=== PATIENT | male | born 1960 | race Asian ===

== ENCOUNTER 2017-05-04 16:27 | Inpatient (IN) | payer OTHER ==
[2017-05-04 16:36] VITALS: BMI 24.9
[2017-05-04] MEDS ORDERED: ACETAMINOPHEN 325 MG TABLET (FP) PO ONE (16:40)
--- NOTE | 2017-05-04 16:54 | PDOC ---
History of Present Illness - General Chief Complaint: SIRS, Suspected/Possible Stated Complaint: FEVER, FATIGUE Time Seen by Provider: 05/04/17 16:53 History Source: Patient Exam Limitations: No Limitations - History of Present Illness Initial Comments: 05/04/17 16:54 CHIEF COMPLAINT: Weakness HISTORY OF PRESENT ILLNESS: This is a 56 year old male with a history of BPH and HLD who presents complaining of fevers, chills, diaphoresis, and generalized weakness since last night. He complains of dry mouth, but otherwise denies all focal symptoms including headache, throat pain, chest pain, shortness of breath, cough, abdominal pain, n/v/d, dysuria, and rashes. He denies recent travel and sick contacts. PCP is Dr. Tatum. REVIEW OF SYSTEMS: GENERAL/CONSTITUTIONAL: Fevers/chills/diaphoresis. HEAD, EYES, EARS, NOSE AND THROAT: No change in vision. No ear pain or discharge. No sore throat. CARDIOVASCULAR: No chest pain or palpitations. RESPIRATORY: No cough, wheezing, or shortness of breath. GASTROINTESTINAL: No nausea, vomiting, diarrhea or constipation. GENITOURINARY: Dark urine. No dysuria, frequency, or change in urination. MUSCULOSKELETAL: No joint or muscle swelling or pain. No neck or back pain. SKIN: No rash or easy bruising. NEUROLOGIC: No headache, vertigo, loss of consciousness, or loss of sensation. PSYCHIATRIC: No depression or anxiety. ENDOCRINE: No increased thirst. No abnormal weight change. HEMATOLOGIC/LYMPHATIC: No anemia, easy bleeding, or history of blood clots. ALLERGIC/IMMUNOLOGIC: No hives or skin allergy. No latex allergy. PHYSICAL EXAM: GENERAL: The patient is awake, alert, and fully oriented. Very diaphoretic. HEAD: Normal with no signs of trauma. ENT: Pupils equal, round and reactive to light, extraocular movements intact, sclera anicteric, conjunctiva clear. Neck supple. LUNGS: Clear to auscultation bilaterally. Normal excursion. No respiratory distress or use of accessory muscles. CV: RRR, S1/S2, no MRG. Cap refill < 2 sec. ABDOMEN: Soft, non-distended, non-tender. EXTREMITIES: Normal range of motion, no edema. NEUROLOGICAL: Normal speech, normal gait. CN II-XII grossly intact. PSYCH: Normal mood, normal affect. SKIN: Warm, dry, normal turgor, no rashes or lesions noted. Past History - Past Medical History Allergies/Adverse Reactions: Allergies Allergy/AdvReac Type Severity Reaction Status Date / Time No Known Allergies Allergy Verified 05/04/17 16:31 Home Medications: Ambulatory Orders Tamsulosin HCl 1 each PO DAILY 11/20/14 Simvastatin 40 mg PO HS 05/04/17 Anemia: No Asthma: No Cancer: No Cardiac Disorders: No CVA: No COPD: No CHF: No Dementia: No Diabetes: No GI Disorders: No Disorders: Yes (BPH) HTN: No Hypercholesterolemia: Yes Liver Disease: No Suicide Attempt (Hx): No Seizures: No Thyroid Disease: No - Surgical History Abdominal Surgery: Yes (LT INGUINAL HERNIA REPAIR 25 YRS AGO) - Psycho/Social/Smoking Cessation Hx Anxiety: No Suicidal Ideation: No Smoking History: Never smoked Have you smoked in the past 12 months: Yes Number of Cigarettes Smoked Daily: 2 Information on smoking cessation initiated: No 'Breaking Loose' booklet given: 11/21/14 Hx Alcohol Use: No Drug/Substance Use Hx: No Substance Use Type: None Hx Substance Use Treatment: No *Physical Exam - Vital Signs Last Vital Signs Temp Pulse Resp BP Pulse Ox 101.8 F H 108 H 18 132/99 96 05/04/17 16:32 05/04/17 16:32 05/04/17 16:32 05/04/17 16:32 05/04/17 16:32 ED Treatment Course - LABORATORY CBC & Chemistry Diagram: 05/05/17 06:40 05/05/17 06:40 - Medications Given in the ED: ED Medications Discontinued Medications Generic Name Dose Route Start Last Admin Trade Name Neoq PRN Reason Stop Dose Admin Acetaminophen 975 mg 05/04/17 16:40 05/04/17 16:40 Tylenol - PO 05/04/17 16:41 975 mg NOW ONE Administration Medical Decision Making - Medical Decision Making 05/04/17 17:57 A/P: 56 year old male with fever. 1. EKG 2. CXR 3. Sepsis labs and fink-culture 4. Influenza swab 5. Tylenol 975mg po for fever 6. IVF 7. Reassess 05/04/17 18:33 WBC within normal limits at 7.0. Flu negative. UA 3+ blood, no WBCs. INR mildly prolonged at 1.3. 05/04/17 19:00 CXR wet read: RML infiltrate. Will place in observation given ill appearance. Accepted by Dr. Lee. *DC/Admit/Observation/Transfer Diagnosis at time of Disposition: Community acquired bacterial pneumonia Fever Qualifiers: Encounter type: initial encounter - Discharge Dispostion Admit: Yes
[2017-05-04] MEDS ORDERED: SODIUM CHLORIDE 1,000 ML IV STA (16:55)
[2017-05-04 17:37] LABS: BASOPHIL 0.7 % (0-2.0); EOSINOPHIL 0.4 % (0-4.5); MCH 29.8 pg (25.7-33.7); MEAN CELL VOLUME 87.6 fl (80-96); MEAN PLT VOLUME 7.9 fl (7.5-11.1); NEUTROPHILS 81.1 % (42.8-82.8); PLATELET COUNT 164 K/MM3 (134-434); RDW 13.3 % (11.9-15.9); URINE APPEARANCE CLEAR; URINE BILIRUBIN NEGATIVE (NEGATIVE); URINE BLOOD 3+ (NEGATIVE); URINE COLOR LT. YELLOW; URINE GLUCOSE (UA) NEGATIVE (NEGATIVE); URINE KETONE NEGATIVE (NEGATIVE); URINE LEUK ESTERASE NEGATIVE (NEGATIVE); URINE NITRITE NEGATIVE (NEGATIVE); URINE PROTEIN NEGATIVE (NEGATIVE)
[2017-05-04 18:02] LABS: INR 1.3 (0.82-1.09); PROTHROMBIN TIME (PATIENT) 14.4 SEC (9.98-11.88)
[2017-05-04 18:04] LABS: ACTIVATED PTT 35.9 SECONDS (26.9-34.4)
[2017-05-04 18:13] LABS: ALBUMIN 4.1 g/dl (3.4-5.0); ANION GAP 7 (8-16); CALCIUM 8.6 mg/dL (8.5-10.1); CO2 27 mmol/L (21-32); CREATININE 1.1 mg/dL (0.7-1.3); GLUCOSE,RANDOM 113 mg/dL (74-106); SGOT/AST 29 U/L (15-37); SGPT/ALT 27 U/L (12-78)
[2017-05-04 18:16] LABS: ALK PHOS 61 U/L (45-117); BILIRUBIN,TOTAL 0.7 mg/dL (0.2-1.0); CPK 166 IU/L (39-308); TOT PROT 7.6 g/dl (6.4-8.2); TROPONIN I < 0.02 ng/ml (0.00-0.05)
[2017-05-04] MEDS: SODIUM CHLORIDE 1,000 ML IV SCH ×2 (18:20→23:54)
[2017-05-04 18:22] LABS: URINE BACTERIA RARE /hpf (NONE SEEN); URINE MUCUS RARE; URINE RBC 9 /hpf (0-3); URINE WBC 1 /hpf (3-5)
[2017-05-04] MEDS ORDERED: LEVOFLOXACIN 750 MG IVPB 150 ML IVPB ONE ×2 (18:57→19:19)
--- NOTE | 2017-05-04 20:21 | HP ---
Admitting History and Physical - Admission History of Present Illness: 56yo M with history of HLD and BPH presents to the ED with 4 days of lightheadedness, dry mouth, and diaphoresis. Pt states that he came in today because his lightheadedness was worsening and was exacerbated by standing. He denies any CP, SOB, constitutional symptoms, cough (both productive and nonproductive), sick contacts, and any recent hospitalizations or interventions. Pt denies smoking, alcohol, illicit drugs CURB-65 of 0 SIRS 2/4 with fever and tachycardia History Source: Patient Limitations to Obtaining History: No Limitations - Past Medical History Cardiovascular: Yes: Hyperlipdemia Renal/: Yes: BPH - Smoking History Smoking history: Never smoked Have you smoked in the past 12 months: No - Alcohol/Substance Use Hx Alcohol Use: No - Social History Usual Living Arrangement: Yes: With Spouse History of Recent Travel: No Home Medications - Allergies Allergies/Adverse Reactions: Allergies Allergy/AdvReac Type Severity Reaction Status Date / Time No Known Allergies Allergy Verified 05/04/17 16:31 - Home Medications Home Medications: Ambulatory Orders Tamsulosin HCl 1 each PO DAILY 11/20/14 Simvastatin 40 mg PO HS 05/04/17 Physical Examination Vital Signs: Vital Signs Temperature 101.8 F H 05/04/17 16:32 Pulse Rate 108 H 05/04/17 16:32 Respiratory Rate 18 05/04/17 16:32 Blood Pressure 132/99 05/04/17 16:32 O2 Sat by Pulse Oximetry (%) 96 05/04/17 16:32 Constitutional: Yes: Well Nourished, No Distress, Calm, Diaphoresis Eyes: Yes: Conjunctiva Clear, EOM Intact, PERRL HENT: Yes: Other (Moist mucosa) Cardiovascular: Yes: Tachycardia, S1, S2. No: Murmur Respiratory: Yes: Regular, Other (R middle lobe rhonchi appreciated on auscultation; good aeration, no wheezing noted). No: SOB Gastrointestinal: Yes: Normal Bowel Sounds, Soft. No: Hepatomegaly, Splenomegaly, Tenderness, Tenderness, Rebound Extremities: Yes: WNL Edema: No Peripheral Pulses WNL: Yes Neurological: Yes: Alert, Oriented Psychiatric: Yes: Alert, Oriented Imaging - Results Chest X-ray: Image Reviewed Assessment/Plan 56yo M with minor medical conditions found to have R middle lobe infiltrates on CXR after experiencing diaphoresis related to fevers, lightheadedness, and dry mouth for 4 days. 1) Sepsis secondary to community acquired pneumonia --SIRS 2/4 --CURB-65 of 0 --WBC 11.7, Fever of 101.4 --Currently getting first dose of Levaquin in the ED --Will continue with Day 2 Rocephin/Azithromycin --Urine legionella Antigen ordered --Tylenol PRN for fever --Blood Cx x2 and Urine cultures pending; will f/u 2) Elevated INR --No abdominal tenderness --No past medical history of liver dz --No alcohol consumption --Will follow 3) Past stable medical history --Continued home regiment of statin and tamsulosin FEN: Fluids: Received fluids in ER; will continue gentle hydration; PO tolerant Electrolyte abnormalities: None currently Nutrition: Regular Diet PPX: DVt -- Heparin 5000U SQ Visit type - Emergency Visit Emergency Visit: Yes ED Registration Date: 05/04/17 Care time: The patient presented to the Emergency Department on the above date and was hospitalized for further evaluation of their emergent condition. - New Patient This patient is new to me today: Yes Date on this admission: 05/05/17 - Critical Care Critical Care patient: No
[2017-05-04] MEDS ORDERED: PATIENT'S OWN MEDICATION (NON-FORMULARY) (Simvastatin [Simvastatin] 40 MG) PO SCH (22:00)
--- NOTE | 2017-05-04 22:28 | PN ---
Teaching Attending Note Name of Resident: Anthony Lopez ATTENDING PHYSICIAN STATEMENT I saw and evaluated the patient. I reviewed the resident's note and discussed the case with the resident. I agree with the resident's findings and plan as documented. SUBJECTIVE: 56 yo gentleman admitted to general medical floor for Sepsis secondary to Community Acquired Pneumonia complicated by mild hyponatremia and patient fear of being discharged home. OBJECTIVE: - Vital Signs Temp: 101.8F BP: 132/99 HR: 108 RR: 18 spO2: 96% on RA - Physical Examination General: Alert, anxious, profusely diaphoretic gentleman in mild distress HEENT: Diaphoretic, EOMI, No oropharyngeal lesions noted Neck: No JVD or thyromegaly CV: Sinus Tachycardia, S1 and S2 Pulm: Rhonchi appreciated R>L ; No wheezing or crackles appreciated Abd: Soft, NTTP, ND, BS+ Ext: Symmetrically appearing Lymph: No cervical or axillary lymphadenopathy - Imaging CXR reviewed ( RML infiltrate c/w Pneumonia ) - Labs BUN/Cr: 14/1.1 K+: 4.0 ; Na+: 135 H/H: 14.7/43.3 w/ no leukocytosis aPTT/INR: 35.9/1.30 Troponin unremarkable ASSESSMENT: Sepsis Community Acquired Pneumonia ( Bacterial presumed ; r/o Legionella) Mild Hyponatremia Mild elevation INR h/o DLD - Stable h/o BPH - Stable PLAN: Admit for observation and resolution of sepsis syndrome Confirm and resume outpatient medication regimen Start IV rocephin and azithromycin pending blood, sputum cultures and urine legionella IVF hydration with NS for 1-2 liters overnight Supplemental O2 to maintain spO2 >96% ; Duonebs q4h prn ; Incentive Spirometry q2h while awake as tolerated Ambulation as tolerated Trend electrolytes and renal function, coag panel, and CBC in AM DISPOSITION: Anticipate discharge home on PO antibiotic regimen in 24-48h assuming no clinical events from admission. Update vaccinations
[2017-05-04] MEDS: ATORVASTATIN CA 20 MG TABLET (FP) PO SCH (23:55)
[2017-05-04] MEDS: HEPARIN NA (PORCINE) 5,000 UNITS/ML 1ML VIAL SQ SCH ×2 (23:55)
[2017-05-05] MEDS: HEPARIN NA (PORCINE) 5,000 UNITS/ML 1ML VIAL SQ SCH ×3 (06:12→21:48)
[2017-05-05] MEDS: ACETAMINOPHEN 325 MG TABLET (FP) PO PRN ×2 (06:29→21:42)
--- NOTE | 2017-05-05 08:14 | PN ---
Teaching Attending Note Name of Resident: Rosina Kirkland ATTENDING PHYSICIAN STATEMENT I saw and evaluated the patient. I reviewed the resident's note and discussed the case with the resident. I agree with the resident's findings and plan as documented. SUBJECTIVE: No specific complaints OBJECTIVE: Vitals noted ASSESSMENT AND PLAN: Clinically improved Sepsis resolved Appreciate web development consultant input Anticipate discharge tomorrow if he remains afebrile See resident note for full details
[2017-05-05 08:25] LABS: BASOPHIL 0.4 % (0-2.0); EOSINOPHIL 1.7 % (0-4.5); MCH 29.3 pg (25.7-33.7); MCHC 33.5 g/dl (32.0-35.9); MEAN CELL VOLUME 87.4 fl (80-96); MEAN PLT VOLUME 8.7 fl (7.5-11.1); NEUTROPHILS 65.3 % (42.8-82.8); PLATELET COUNT 116 K/MM3 (134-434); RDW 13.4 % (11.9-15.9); WHITE BLOOD COUNT 4.7 K/mm3 (4.0-10.0)
[2017-05-05 08:32] LABS: ALBUMIN 3.1 g/dl (3.4-5.0); ANION GAP 6 (8-16); CALCIUM 7.8 mg/dL (8.5-10.1); CO2 26 mmol/L (21-32); GLUCOSE,RANDOM 108 mg/dL (74-106)
[2017-05-05 08:36] LABS: ALK PHOS 58 U/L (45-117); BILIRUBIN,TOTAL 0.4 mg/dL (0.2-1.0); CREATININE 0.9 mg/dL (0.7-1.3); SGOT/AST 30 U/L (15-37); SGPT/ALT 30 U/L (12-78); TOT PROT 6.1 g/dl (6.4-8.2)
[2017-05-05] MEDS: TAMSULOSIN HCL 0.4 MG CAP.ER.24H (FP) PO SCH (09:55)
--- NOTE | 2017-05-05 10:23 | EKG ---
Test Reason : Blood Pressure : / mmHG Vent. Rate : 075 BPM Atrial Rate : 075 BPM P-R Int : 204 ms QRS Dur : 094 ms QT Int : 374 ms P-R-T Axes : 047 019 049 degrees QTc Int : 417 ms NORMAL SINUS RHYTHM POSSIBLE LEFT ATRIAL ENLARGEMENT INCOMPLETE RBBB WHEN COMPARED WITH ECG OF 14-NOV-2014 13:20, NO SIGNIFICANT CHANGE WAS FOUND Confirmed by JAMMIE DIGGS MD ([id number]) on 05/05/2017 10:23:31 AM Referred By: Confirmed By:JAMMIE DIGGS MD
--- NOTE | 2017-05-05 10:36 | PN ---
Progress Note (short form) - Note Progress Note: ID consult dictated CAP RML continue rocephin/zithromax urinary antigens labs in am f/u cultures will need f/u chest xray as outpt to document resolution of infiltrate Problem List - Problems (1) Community acquired bacterial pneumonia Code(s): J15.9 - UNSPECIFIED BACTERIAL PNEUMONIA
[2017-05-05] MEDS: DEXTROSE 5%-0.45% SALINE 1,000 ML IV SCH (13:10)
--- NOTE | 2017-05-05 16:56 | PN ---
Physical Exam: SUBJECTIVE: Patient seen and examined at bedside. States that he is feeling slightly better, but still feels weak and has decreased appetite. OBJECTIVE: Vital Signs Period Temp Pulse Resp BP Sys/Isbell Pulse Ox Last 24 Hr 98.6 F-100.4 F 68-88 18-20 113-129/70-74 99 GENERAL: The patient is awake, alert, and fully oriented, in no acute distress. HEAD: Normal with no signs of trauma. EYES: PERRL, extraocular movements intact, sclera anicteric, conjunctiva clear. No ptosis. ENT: Ears normal, nares patent, oropharynx clear without exudates, moist mucous membranes. NECK: Trachea midline, full range of motion, supple. LUNGS: crackles appreciated R anterior chest HEART: Regular rate and rhythm, S1, S2 without murmur, rub or gallop. ABDOMEN: Soft, nontender, nondistended, normoactive bowel sounds, no guarding, no rebound, no hepatosplenomegaly, no masses. EXTREMITIES: 2+ posterior tibial pulses, warm, well-perfused, no edema. NEUROLOGICAL: Cranial nerves II through XII grossly intact. Laboratory Results - last 24 hr 05/05/17 05/05/17 06:40 06:40 WBC 4.7 D RBC 4.39 Hgb 12.8 D Hct 38.3 MCV 87.4 MCH 29.3 MCHC 33.5 RDW 13.4 Plt Count 116 L D MPV 8.7 D Neutrophils % 65.3 Lymphocytes % 20.7 D Monocytes % 11.9 H Eosinophils % 1.7 D Basophils % 0.4 Sodium 140 Potassium 4.6 Chloride 108 H Carbon Dioxide 26 Anion Gap 6 L BUN 12 Creatinine 0.9 Creat Clearance w eGFR > 60 Random Glucose 108 H Calcium 7.8 L Total Bilirubin 0.4 D AST 30 ALT 30 Alkaline Phosphatase 58 Total Protein 6.1 L Albumin 3.1 L D Active Medications Generic Name Dose Route Start Last Admin Trade Name Freq PRN Reason Stop Dose Admin Acetaminophen 650 mg 05/04/17 19:54 05/05/17 06:29 Tylenol - PO 650 mg Q4H PRN Administration FEVER OR PAIN Atorvastatin Calcium 20 mg 05/04/17 22:00 05/04/17 23:55 Lipitor - PO 20 mg HS KARIE Administration Azithromycin 500 mg 05/05/17 22:00 Zithromax 500mg Ivpb (Pre-Docked) IVPB HS KARIE Heparin Sodium (Porcine) 5,000 unit 05/04/17 22:00 05/05/17 15:34 Heparin - SQ Not Given TID KARIE Ceftriaxone Sodium 1 gm/ 50 mls @ 100 mls/hr 05/05/17 22:00 Dextrose IVPB DAILY@2200 KARIE Dextrose/Sodium Chloride 1,000 mls @ 125 mls/hr 05/05/17 11:45 05/05/17 13:10 D5-1/2ns - IV 125 mls/hr ASDIR KARIE Administration Tamsulosin HCl 0.4 mg 05/05/17 10:00 05/05/17 09:55 Flomax - PO 0.4 mg DAILY KARIE Administration ASSESSMENT/PLAN: 56 y/o M with PMH HLD, GABRIEL, who presented to ED with 4 days of lightheadedness, dry mouth, diaphoresis. Pt admitted for sepsis secondary to community acquired pneumonia. #Sepsis secondary to community acquired pneumonia -Pt currently afebrile, without leukocytosis or tachycardia -Received 1 dose o Levaquin in ED -Now on Rocephin/Azithromycin (Day1) -Possible d/c tomorrow on PO abx if he remains afebrile for 24 hrs -F/u blood and urine cx #BPH -Continue flomax 0.4mg PO #HLD -Continue lipitor 20mg PO HS F/E/N -D5 1/2 NS maintenance fluids -Monitor electrolytes -Regular diet Disposition -Potentially to home tomorrow if remains afebrile
[2017-05-05] MEDS ORDERED: LEVOFLOXACIN 750 MG IVPB 150 ML IVPB ONE (20:00)
[2017-05-05] MEDS ORDERED: DEXTROSE 5%-WATER - 50 ML IVPB ONE (21:26)
[2017-05-05] MEDS ORDERED: cefTRIAXone SODIUM 1 GM VIAL ONE (21:26)
[2017-05-05] MEDS: AZITHROMYCIN IVPB 500 MG/250 ML D5W PRE-DOCKED IVPB SCH (21:42)
[2017-05-05] MEDS: CEFTRIAXONE 1 GM in DEXTROSE 5%-WATER - 50 ML IVPB SCH (21:42)
[2017-05-05] MEDS: ATORVASTATIN CA 20 MG TABLET (FP) PO SCH (21:42)
[2017-05-05] MEDS ORDERED: cefTRIAXone 1 GM/50 ML BAG (PRE-DOCKED) IVPB SCH (22:00)
[2017-05-05] MEDS ORDERED: AZITHROMYCIN IVPB 500 MG in DEXTROSE 5%-WATER - 250 ML IVPB SCH (22:00)
[2017-05-06] MEDS: HEPARIN NA (PORCINE) 5,000 UNITS/ML 1ML VIAL SQ SCH ×3 (06:52→21:27)
--- NOTE | 2017-05-06 07:22 | PN ---
Teaching Attending Note Name of Resident: Rosina Kirkland ATTENDING PHYSICIAN STATEMENT I saw and evaluated the patient. I reviewed the resident's note and discussed the case with the resident. I agree with the resident's findings and plan as documented. SUBJECTIVE: No stated complaints He states that he feels slights better OBJECTIVE: Vitals noted He was febrile to 100.7 at 21:00 yesterday and has been afebrile since he looks improved Todays labs noted ASSESSMENT AND PLAN: Community acquired pneumonia Sepsis, resolved He seems clinically improved, though he only reports mild improvement Blood cultures negative Urinary antigens negative Respiratory viral panel negative Appreciate managed services sales consultant input Continue Ceftriaxone / Azithromycin Possible discharge later today See resident note for full details
[2017-05-06 07:24] LABS: BASOPHIL 0.3 % (0-2.0); EOSINOPHIL 5.3 % (0-4.5); MCHC 34.4 g/dl (32.0-35.9); MEAN CELL VOLUME 87.2 fl (80-96); MEAN PLT VOLUME 8.1 fl (7.5-11.1); NEUTROPHILS 53.2 % (42.8-82.8); PLATELET COUNT 156 K/MM3 (134-434); RDW 13.5 % (11.9-15.9); WHITE BLOOD COUNT 4.2 K/mm3 (4.0-10.0)
[2017-05-06] MEDS: ACETAMINOPHEN 325 MG TABLET (FP) PO PRN ×2 (07:38→17:51)
[2017-05-06 07:46] LABS: ANION GAP 7 (8-16); CALCIUM 8.1 mg/dL (8.5-10.1); CO2 26 mmol/L (21-32); CREATININE 0.8 mg/dL (0.7-1.3); GLUCOSE,RANDOM 132 mg/dL (74-106)
[2017-05-06] MEDS: TAMSULOSIN HCL 0.4 MG CAP.ER.24H (FP) PO SCH (09:35)
--- NOTE | 2017-05-06 09:56 | PN ---
Physical Exam: SUBJECTIVE: Patient seen and examined at bedside. Pt febrile last night 9pm with 100.7F. Received Tylenol 650mg. Pt states that he was sweating profusely at the time, as on admission when his temp was 101. This AM pt endorses severe headache. His appetite is decreased but he says that he has been able to eat. OBJECTIVE: Vital Signs Period Temp Pulse Resp BP Sys/Isbell Pulse Ox Last 24 Hr 98.3 F-100.7 F 72-85 18-18 120-133/70-86 97 GENERAL: The patient is awake, alert, and fully oriented, in no acute distress. HEAD: Normal with no signs of trauma. EYES: PERRL, extraocular movements intact, sclera anicteric, conjunctiva clear. No ptosis. NECK: Trachea midline, supple. LUNGS: Breath sounds equal, clear to auscultation bilaterally, no wheezes, no crackles, no accessory muscle use. HEART: Regular rate and rhythm, S1, S2 without murmur, rub or gallop. ABDOMEN: Soft, nontender, nondistended, normoactive bowel sounds, no guarding, no rebound, no hepatosplenomegaly, no masses. EXTREMITIES: 2+ posterior tibial pulses, warm, well-perfused, no edema. NEUROLOGICAL: Cranial nerves II through XII grossly intact. Laboratory Results - last 24 hr 05/06/17 05/06/17 06:30 06:30 WBC 4.2 RBC 4.35 Hgb 13.1 Hct 38.0 MCV 87.2 MCH 30.0 MCHC 34.4 RDW 13.5 Plt Count 156 D MPV 8.1 Neutrophils % 53.2 Lymphocytes % 26.7 D Monocytes % 14.5 H Eosinophils % 5.3 H D Basophils % 0.3 Sodium 141 Potassium 3.7 Chloride 108 H Carbon Dioxide 26 Anion Gap 7 L BUN 6 L D Creatinine 0.8 Random Glucose 132 H D Calcium 8.1 L Active Medications Generic Name Dose Route Start Last Admin Trade Name Freq PRN Reason Stop Dose Admin Acetaminophen 650 mg 05/04/17 19:54 05/06/17 07:38 Tylenol - PO 650 mg Q4H PRN Administration FEVER OR PAIN Atorvastatin Calcium 20 mg 05/04/17 22:00 05/05/17 21:42 Lipitor - PO 20 mg HS KARIE Administration Azithromycin 500 mg 05/05/17 22:00 05/05/17 21:42 Zithromax 500mg Ivpb (Pre-Docked) IVPB 500 mg HS KARIE Administration Heparin Sodium (Porcine) 5,000 unit 05/04/17 22:00 05/06/17 06:52 Heparin - SQ Not Given TID KARIE Ceftriaxone Sodium 1 gm/ 50 mls @ 100 mls/hr 05/05/17 22:00 05/05/17 21:42 Dextrose IVPB 100 mls/hr DAILY@2200 KARIE Administration Dextrose/Sodium Chloride 1,000 mls @ 125 mls/hr 05/05/17 11:45 05/05/17 13:10 D5-1/2ns - IV 125 mls/hr ASDIR KARIE Administration Tamsulosin HCl 0.4 mg 05/05/17 10:00 05/06/17 09:35 Flomax - PO 0.4 mg DAILY KARIE Administration ASSESSMENT/PLAN: 56 y/o M with PMH HLD, BPH, who presented to ED with 4 days of lightheadedness, dry mouth, diaphoresis. Pt admitted for sepsis secondary to community acquired pneumonia. #Sepsis secondary to community acquired pneumonia -Pt currently afebrile, without leukocytosis or tachycardia (last fever 9pm yesterday) -Received 1 dose of Levaquin in ED -Now on Rocephin/Azithromycin (Day2) -Can be d/c on Levaquin PO, f/u CXR as outpatient -Blood and urine cx : negative #BPH -Continue Flomax 0.4mg PO #HLD -Continue Lipitor 20mg PO HS F/E/N -D5 1/2 NS maintenance fluids -Monitor electrolytes -Regular diet Prophylaxis -DVT: Heparin 5000U SQ TID Disposition -home when afebrile Visit type - Emergency Visit Emergency Visit: No - New Patient This patient is new to me today: No - Critical Care Critical Care patient: No
--- NOTE | 2017-05-06 14:44 | PN ---
Progress Note (short form) - Note Progress Note: some low grade fevers Vital Signs Period Temp Pulse Resp BP Sys/Isbell Pulse Ox Last 24 Hr 98.3 F-100.7 F 71-85 18-18 119-133/67-86 97 cor-rrr lungs decreased bs at bases abd soft,nt ext no edema CBC, BMP 05/06/17 06:30 05/06/17 06:30 Active Medications Acetaminophen (Tylenol -) 650 mg PO Q4H PRN PRN Reason: FEVER OR PAIN Last Admin: 05/06/17 07:38 Dose: 650 mg Atorvastatin Calcium (Lipitor -) 20 mg PO HS [facility] Last Admin: 05/05/17 21:42 Dose: 20 mg Azithromycin (Zithromax 500mg Ivpb (Pre-Docked)) 500 mg IVPB [facility] Last Admin: 05/05/17 21:42 Dose: 500 mg Heparin Sodium (Porcine) (Heparin -) 5,000 unit SQ TID [facility] Last Admin: 05/06/17 14:12 Dose: Not Given Ceftriaxone Sodium 1 gm/ (Dextrose) 50 mls @ 100 mls/hr IVPB DAILY@2200 [facility] Last Admin: 05/05/17 21:42 Dose: 100 mls/hr Dextrose/Sodium Chloride (D5-1/2ns -) 1,000 mls @ 125 mls/hr IV ASDIR [facility] Last Admin: 05/05/17 13:10 Dose: 125 mls/hr Tamsulosin HCl (Flomax -) 0.4 mg PO DAILY [facility] Last Admin: 05/06/17 09:35 Dose: 0.4 mg Microbiology 05/04/17 17:05 Urine - Urine Clean Catch Urine Culture - Final NO GROWTH OBTAINED 05/04/17 17:05 Blood - Peripheral Venous Blood Culture - Preliminary NO GROWTH OBTAINED AFTER 24 HOURS, INCUBATION TO CONTINUE FOR 4 DAYS. 05/04/17 17:05 Blood - Peripheral Venous Blood Culture - Preliminary NO GROWTH OBTAINED AFTER 24 HOURS, INCUBATION TO CONTINUE FOR 4 DAYS. 05/05/17 10:50 Urine For Antigen Detection Legionella Antigen - Final 05/05/17 10:50 Urine For Antigen Detection Streptococcus pneumoniae Antigen (M - Final 05/04/17 17:45 Nasopharyngeal Swab Respiratory Virus Panel - Preliminary 05/04/17 17:45 Nasopharyngeal Swab Influenza Types A,B Antigen (GARCÍA) - Final 05/04/17 17:45 Nasopharyngeal Swab - Final a/p CAP- on rocephin/zithromax can change to po levaquin when ready for discharge will need f/u chest xray as outpt to document resolution of infiltrate please call back if needed Problem List - Problems (1) Community acquired bacterial pneumonia Code(s): J15.9 - UNSPECIFIED BACTERIAL PNEUMONIA
[2017-05-06] MEDS: DEXTROSE 5%-0.45% SALINE 1,000 ML IV SCH (17:52)
[2017-05-06] MEDS ORDERED: cefTRIAXone SODIUM 1 GM VIAL ONE (21:25)
[2017-05-06] MEDS ORDERED: DEXTROSE 5%-WATER - 50 ML IVPB ONE (21:26)
[2017-05-06] MEDS: CEFTRIAXONE 1 GM in DEXTROSE 5%-WATER - 50 ML IVPB SCH ×2 (21:28→22:32)
[2017-05-06] MEDS: AZITHROMYCIN IVPB 500 MG/250 ML D5W PRE-DOCKED IVPB SCH (21:28)
[2017-05-06] MEDS: ATORVASTATIN CA 20 MG TABLET (FP) PO SCH (21:29)
[2017-05-06 21:41] VITALS: BP 127/77; PULSE 78; TEMP 98.7
--- NOTE | 2017-05-07 00:43 | DS ---
Physical Exam: SUBJECTIVE: Patient seen and examined at bedside this evening. Afebrile, without chills or myalgias. OBJECTIVE: Vital Signs Period Temp Pulse Resp BP Sys/Isbell Pulse Ox Last 24 Hr 98.3 F-99.4 F 71-85 18-20 119-133/67-77 97-97 PHYSICAL EXAM GENERAL: The patient is awake, alert, and fully oriented, in no acute distress. HEAD: Normal with no signs of trauma. EYES: PERRL, extraocular movements intact, sclera anicteric, conjunctiva clear. NECK: Trachea midline, full range of motion, supple. LUNGS: Breath sounds equal, clear to auscultation bilaterally, no wheezes, no crackles, no accessory muscle use. HEART: Regular rate and rhythm, S1, S2 without murmur, rub or gallop. ABDOMEN: Soft, nontender, nondistended, normoactive bowel sounds, no guarding, no rebound, no hepatosplenomegaly, no masses. EXTREMITIES: 2+ posterior tibial pulses, warm, well-perfused, no edema. NEUROLOGICAL: Cranial nerves II through XII grossly intact. LABS 05/04/17 05/04/17 05/04/17 17:05 17:05 17:05 WBC 7.0 Hgb 14.7 Hct 43.3 Plt Count 164 D INR 1.30 H PTT (Actin FS) 35.9 H Sodium Potassium Chloride BUN Creatinine Random Glucose Calcium Albumin Urine Color Lt. yellow Urine Appearance Clear Urine pH 6.0 Urine Protein Negative Urine Glucose (UA) Negative Urine Ketones Negative Urine Blood 3+ H Urine Nitrite Negative Urine Bilirubin Negative Ur Leukocyte Esterase Negative 05/04/17 05/05/17 05/05/17 17:05 06:40 06:40 WBC 4.7 D Hgb 12.8 D Hct 38.3 Plt Count 116 L D INR PTT (Actin FS) Sodium 135 L 140 Potassium 4.0 4.6 Chloride 101 108 H BUN 14 12 Creatinine 1.1 D 0.9 Random Glucose 113 H D 108 H Calcium 8.6 7.8 L Albumin 4.1 3.1 L D Urine Color Urine Appearance Urine pH Urine Protein Urine Glucose (UA) Urine Ketones Urine Blood Urine Nitrite Urine Bilirubin Ur Leukocyte Esterase 05/06/17 05/06/17 06:30 06:30 WBC 4.2 Hgb 13.1 Hct 38.0 Plt Count 156 D INR PTT (Actin FS) Sodium 141 Potassium 3.7 Chloride 108 H BUN 6 L D Creatinine 0.8 Random Glucose 132 H D Calcium 8.1 L Albumin Urine Color Urine Appearance Urine pH Urine Protein Urine Glucose (UA) Urine Ketones Urine Blood Urine Nitrite Urine Bilirubin Ur Leukocyte Esterase Microbiology 05/05/17 10:50 Urine For Antigen Detection Legionella Antigen - Final 05/05/17 10:50 Urine For Antigen Detection Streptococcus pneumoniae Antigen (M - Final 05/04/17 17:45 Nasopharyngeal Swab Influenza Types A,B Antigen (GARCÍA) - Final 05/04/17 17:45 Nasopharyngeal Swab - Final 05/04/17 17:05 Urine - Urine Clean Catch Urine Culture - Final NO GROWTH OBTAINED 05/04/17 17:45 Nasopharyngeal Swab Respiratory Virus Panel - Preliminary 05/04/17 17:05 Blood - Peripheral Venous Blood Culture - Preliminary NO GROWTH OBTAINED AFTER 48 HOURS, INCUBATION TO CONTINUE FOR 3 DAYS. 05/04/17 17:05 Blood - Peripheral Venous Blood Culture - Preliminary NO GROWTH OBTAINED AFTER 48 HOURS, INCUBATION TO CONTINUE FOR 3 DAYS. IMAGING 05/04/17: EKG: normal sinus rhythm, incomplete RBBB, no significant change from 201405/04/17: CXR: R middle lobe medial segment infiltrate. There may be an element of atelectasis in medial segment of R middle lobe. HOSPITAL COURSE: Date of Admission:05/04/17 Date of Discharge: 05/07/17 Admit diagnosis: sepsis secondary to community acquired pneumonia Pre-admission course 56yo M with history of HLD and BPH who presented to the ED with 4 days of lightheadedness, dry mouth, and diaphoresis. Pt stated that he came in since his lightheadedness was worsening and exacerbated by standing. He denied any CP , SOB, constitutional symptoms, cough (both productive and nonproductive), sick contacts, or any recent hospitalizations or interventions. Hospital course Pt's CXR revealed R middle lobe medial segment infiltrate suggestive of community acquired pneumonia. He was treated with a 2 day course of Rocephin and Azithromax and clinically improved. Pt sent home on five day course of Levaquin 750mg PO. He will f/u with Dr. Roldan in a week, and will need a repeat CXR to confirm resolution of infiltrates. Minutes to complete discharge: 34 Discharge Summary Reason For Visit: FEVER Current Active Problems Community acquired bacterial pneumonia (Acute) Fever (Acute) BPH (benign prostatic hyperplasia) (Chronic) HLD (hyperlipidemia) (Chronic) Condition: Stable - Instructions Diet, Activity, Other Instructions: You were recently in the hospital for pneumonia. You may resume activity as tolerated. Please take the following antibiotic for the next 5 days, starting on 05/07/2017: -Levaquin 750mg (one tablet) daily by mouth until 05/11/17 We will give you a printed prescription for this, as you requested. You may resume your home medications. Please follow-up with your primary care physician, and a dairy cattle farm worker (lung doctor), Dr. Roldan in 1 week. We recommend that you get a chest X-ray on this visit. You may discuss this with Dr. Roldan. If you develop shortness of breath, chest pain, or any new symptoms, please go to the hospital. We hope you feel better soon. Referrals: Adrian Tatum MD [Primary Care Provider] - Koby Roldan MD, MD [Staff Physician] - Disposition: HOME - Home Medications Comprehensive Discharge Medication List: Ambulatory Orders Tamsulosin HCl 1 each PO DAILY 11/20/14 Simvastatin 40 mg PO HS 05/04/17 Levofloxacin [Levaquin] 750 mg PO DAILY #5 tab 05/06/17 This patient is new to me today: No Emergency Visit: No Critical Care patient: No - Discharge Referral Referred to [facility] No
== END 2017-05-07 00:36 | disposition home or self-care (01) | DRG 720 ==
LOC: JER 16:27 → JERBED 19:21 → OBSVTOIN 19:51 → J6S 21:06
PROVIDERS: ADMIT Internal Medicine; ATTEND Internal Medicine
DX: A41.9 Sepsis, unspecified organism (principal); N40.0 Benign prostatic hyperplasia without lower urinary tract symptoms; E78.4 Other hyperlipidemia; E87.1 Hypo-osmolality and hyponatremia; J15.9 Unspecified bacterial pneumonia; I45.19 Other right bundle-branch block; R42 Dizziness and giddiness
CPT/HCPCS: 36415; 71020-TC; 80048; 80053; 81003; 81015; 82553; 83605; 84484; 85025; 85610; 85730; 87040; 87086; 87254; 87804; 87899; 93005; 93010; 99284-25; G0378; J1644

== ENCOUNTER 2022-06-08 06:05 | Day surgery (SDC) | payer OTHER ==
[2022-06-06 16:40] VITALS: BMI 26.9
[2022-06-08 08:38] VITALS: TEMP 97.5
[2022-06-08 09:25] VITALS: BP 115/66; PULSE 62; RESP 16
== END 2022-06-08 09:47 | disposition home or self-care (01) ==
LOC: JASU-ENDO 06:05
PROVIDERS: ATTEND Internal Medicine Gastroenterology
PROC: 0DBP8ZX Excision of Rectum, Via Natural or Artificial Opening Endoscopic, Diagnostic (ICD-10-PCS; 2022-06-08)
PROC: 0DBM8ZX Excision of Descending Colon, Via Natural or Artificial Opening Endoscopic, Diagnostic (ICD-10-PCS; 2022-06-08)
PROC: 0DBH8ZX Excision of Cecum, Via Natural or Artificial Opening Endoscopic, Diagnostic (ICD-10-PCS; principal; 2022-06-08 08:00)
DX: Z12.11 Encounter for screening for malignant neoplasm of colon (principal); D12.0 Benign neoplasm of cecum; D12.4 Benign neoplasm of descending colon; D12.8 Benign neoplasm of rectum; D17.5 Benign lipomatous neoplasm of intra-abdominal organs; K57.30 Diverticulosis of large intestine without perforation or abscess without bleeding; K59.00 Constipation, unspecified; Z86.010 Personal history of colon polyps
CPT/HCPCS: 88305-TC

== ENCOUNTER 2022-08-16 10:54 | Emergency (ER) | payer OTHER ==
[2022-08-16 11:15] VITALS: BP 137/72; PULSE 67; RESP 20; TEMP 97.9; BMI 28.0
== END 2022-08-16 14:35 | disposition home or self-care (01) ==
LOC: JER 10:54
DX: K64.9 Unspecified hemorrhoids (principal)
CPT/HCPCS: 36415; 82272; 99283-25

== ENCOUNTER 2022-11-12 20:30 | Emergency (ER) | payer OTHER ==
[2022-11-12 20:41] VITALS: BP 160/95; PULSE 76; RESP 18; TEMP 98.6; BMI 25.5
[2022-11-12] MEDS ORDERED: IBUPROFEN 600 MG TABLET (FP) PO ONE ×2 (21:22→21:24)
== END 2022-11-12 21:30 | disposition home or self-care (01) ==
LOC: FER 20:30
DX: S42.401A Unspecified fracture of lower end of right humerus, initial encounter for closed fracture (principal); W01.0XXA Fall on same level from slipping, tripping and stumbling without subsequent striking against object, initial encounter
CPT/HCPCS: 73070-TC-RT-FY; 99283-25

== ENCOUNTER 2024-04-03 03:18 | Emergency (ER) | payer OTHER ==
[2024-04-03 03:29] VITALS: TEMP 99.1; BMI 26.7
[2024-04-03] MEDS ORDERED: ACETAMINOPHEN INJECTION 100 ML IVPB ONE (03:47)
[2024-04-03] MEDS: ACETAMINOPHEN 1000 MG/100 ML BAG IVPB ONE (04:04)
[2024-04-03] MEDS ORDERED: morphine SULFATE 4 MG/ML VIAL ONE (04:05)
[2024-04-03] MEDS ORDERED: ONDANSETRON 4 MG/2 ML VIAL ONE (04:06)
[2024-04-03] MEDS: morphine CARPU-JECT 4 MG/1 ML DISP.SYRIN IVPUSH ONE (04:12)
[2024-04-03] MEDS: ONDANSETRON 4 MG/2 ML VIAL IVPUSH ONE (04:12)
[2024-04-03 04:20] LABS: BASO % 0.3 % (0-2.0); EOS % 1.1 % (0-4.5); HEMATOCRIT 42.5 % (35.4-49); HEMOGLOBIN 14.6 GM/dL (11.7-16.9); LYMPH % 34.9 % (8-40); MCH 29.9 pg (25.7-33.7); MCHC 34.4 g/dl (32.0-35.9); MEAN PLT VOLUME 8.1 fl (7.5-11.1); NEUT % 55.7 % (42.8-82.8); PLATELET COUNT 210 10^3/uL (134-434); RBC 4.88 M/mm3 (4.00-5.60); RDW 13.4 % (11.9-15.9); WHITE BLOOD COUNT 6.9 K/mm3 (4.0-10.0)
[2024-04-03 04:40] LABS: INR 1.08 (0.83-1.09); PROTHROMBIN TIME (PATIENT) 12.4 SEC (9.7-13.0)
[2024-04-03] MEDS ORDERED: MORPHINE SULFATE 2 MG/ML SYRINGE ONE (05:16)
[2024-04-03] MEDS: morphine CARPU-JECT 2 MG/1 ML DISP.SYRIN IVPUSH ONE (05:25)
[2024-04-03 05:27] LABS: POTASSIUM 3.5 mmol/L (3.5-5.1)
[2024-04-03 05:30] LABS: BLOOD UREA NITROGEN 17.8 mg/dL (7-18)
[2024-04-03 05:31] LABS: CREATININE 1.3 mg/dL (0.55-1.3)
[2024-04-03 05:34] LABS: BILIRUBIN,TOTAL 0.5 mg/dL (0.2-1); TOT PROT 7.2 g/dl (6.4-8.2)
[2024-04-03 05:40] LABS: EPI CELLS 4 /uL (0-25.1); HYALINE CASTS 0 /uL (0-3.1); PH,URINE 8.5 (5.0-8.0); URINE APPEARANCE CLEAR; URINE BACTERIA 28 /uL (0-1359); URINE BILIRUBIN NEGATIVE (NEGATIVE); URINE COLOR YELLOW; URINE GLUCOSE (UA) NEGATIVE (NEGATIVE); URINE KETONE NEGATIVE (NEGATIVE); URINE LEUK ESTERASE NEGATIVE (NEGATIVE); URINE NITRITE NEGATIVE (NEGATIVE); URINE PROTEIN TRACE (NEGATIVE); URINE RBC 84 /uL (0-23.9); URINE UROBILINOGEN 0.2 mg/dL (0.2-1.0); URINE WBC 21 /uL (0-25.8)
[2024-04-03] MEDS: SODIUM CHLORIDE 0.9% 500 ML INFUS.BAG IV ONE (06:23)
[2024-04-03] MEDS ORDERED: HYDROmorphone HCL CARPU-JECT 2 MG/1 ML DISP.SYRIN ONE (06:25)
[2024-04-03] MEDS: HYDROmorphone HCl 2 MG/ML VIAL IVPUSH ONE (06:35)
[2024-04-03 12:08] VITALS: BP 105/66; PULSE 69; RESP 18
== END 2024-04-03 11:50 | disposition home or self-care (01) ==
LOC: JER 03:18
PROC: 3E033GC Introduction of Other Therapeutic Substance into Peripheral Vein, Percutaneous Approach (ICD-10-PCS; principal; 2024-04-03)
PROC: 3E033NZ Introduction of Analgesics, Hypnotics, Sedatives into Peripheral Vein, Percutaneous Approach (ICD-10-PCS; 2024-04-03)
PROC: 3E033NZ Introduction of Analgesics, Hypnotics, Sedatives into Peripheral Vein, Percutaneous Approach (ICD-10-PCS; 2024-04-03)
PROC: 3E033NZ Introduction of Analgesics, Hypnotics, Sedatives into Peripheral Vein, Percutaneous Approach (ICD-10-PCS; 2024-04-03)
PROC: 3E033NZ Introduction of Analgesics, Hypnotics, Sedatives into Peripheral Vein, Percutaneous Approach (ICD-10-PCS; 2024-04-03)
DX: M54.50 Low back pain, unspecified (principal); N13.2 Hydronephrosis with renal and ureteral calculous obstruction; R33.9 Retention of urine, unspecified; R11.2 Nausea with vomiting, unspecified; R10.9 Unspecified abdominal pain
CPT/HCPCS: 36415; 71275-TC; 74174-TC; 80053; 81003; 84484; 85025; 85610; 85730; 86850; 86900; 86901; 87086; 93005; 93010; 99285-25; J0131; Q9967

== ENCOUNTER 2024-07-25 16:08 | Emergency (ER) | payer OTHER ==
[2024-07-25 16:13] VITALS: PULSE 75; BMI 25.4
[2024-07-25] MEDS ORDERED: FAMOTIDINE 20 MG/50 ML IVPB 20 MG/50 ML MG IVPB ONE (16:29)
[2024-07-25] MEDS ORDERED: ASPIRIN 81 MG CHEWABLE TABLETS ONE (16:29)
[2024-07-25] MEDS ORDERED: MAG HYDROX/AL HYDROX/SIMETH 30 ML UNIT-DOSE CUP ONE (16:30)
[2024-07-25] MEDS ORDERED: ACETAMINOPHEN INJECTION 100 ML ONE (16:30)
[2024-07-25] MEDS: ACETAMINOPHEN 1000 MG/100 ML BAG IVPB ONE (16:42)
[2024-07-25] MEDS: MAG HYDROX/AL HYDROX/SIMETH -MYLANTA- ORAL SUSPENSION PO ONE (16:42)
[2024-07-25] MEDS: FAMOTIDINE 20 MG/50 ML IVPB 20 MG in PREMIX 50 IVPB ONE (16:43)
[2024-07-25] MEDS: ASPIRIN 81 MG CHEWABLE TABLETS PO ONE (16:43)
[2024-07-25 17:00] LABS: HEMATOCRIT 45.1 % (35.4-49); HEMOGLOBIN 15.2 G/dL (11.7-16.9); MCHC 33.7 g/dl (32.0-35.9); MEAN CELL VOLUME 89.2 fl (80-96); MEAN PLT VOLUME 8.8 fl (7.5-11.1); PLATELET COUNT 205.3 10^3/uL (134-434); RBC 5.06 10^6/uL (4.00-5.60); WHITE BLOOD COUNT 5.7 10^3/uL (4.0-10.8)
[2024-07-25 17:10] LABS: ALBUMIN 4.4 g/dl (3.4-5.0); CALCIUM 9.5 mg/dl (8.5-10.1); POTASSIUM 3.4 mmol/L (3.5-5.1); TOT PROT 6.9 g/dl (6.4-8.2)
[2024-07-25 17:16] VITALS: BP 135/76; RESP 18
[2024-07-25 17:43] LABS: PLATELET ESTIMATE ADEQUATE
[2024-07-25 18:37] LABS: EPITHELIAL CELLS 0-6 /hpf
[2024-07-25 18:39] LABS: OVALOCYTE 1+
== END 2024-07-25 21:36 | disposition home or self-care (01) ==
LOC: FER 16:08
PROC: 3E033GC Introduction of Other Therapeutic Substance into Peripheral Vein, Percutaneous Approach (ICD-10-PCS; principal; 2024-07-25)
PROC: 3E033NZ Introduction of Analgesics, Hypnotics, Sedatives into Peripheral Vein, Percutaneous Approach (ICD-10-PCS; 2024-07-25)
DX: R07.89 Other chest pain (principal)
CPT/HCPCS: 36415; 71045-TC-FY; 76705-TC; 80053; 81003; 81015; 82550; 83690; 84484; 85027; 93005; 99285-25; J0131